=== PATIENT | female | born 1975 | race Caucasian/White ===

== ENCOUNTER 2017-09-16 06:07 | Inpatient (IN) ==
[2017-09-16] MEDS ORDERED: SODIUM CHLORIDE 0.9% 500 ML IV STA (06:58)
[2017-09-16] MEDS ORDERED: ONDANSETRON 4 MG/2 ML VIAL IV STA (06:58)
[2017-09-16] MEDS ORDERED: ONDANSETRON 4 MG/2 ML VIAL ONE (07:29)
[2017-09-16 07:34] LABS: Basophils # 0.1 10*3/uL (0.0-0.2); Basophils % 0.6 % (0.0-0.8); Eosinophils # 0.2 10*3/uL (0.0-0.87); Immature Granulocytes % 0.7 %; Immature Granulocytes Absolute 0.11 #; Lymphocytes # 2.6 10*3/uL (1.4-4.0); Lymphocytes % 16.3 % (21.3-54.2); Mean Corpuscular HGB Conc 37.4 GM/DL (32-36); Mean Corpuscular Hemoglobin 31 PG (27-34); Mean Platelet Volume 9.2 FL (9.6-12.0); Monocytes # 1.2 10*3/uL (0.11-0.8); Monocytes % 7.4 % (1.7-12.7); Neutrophils # 11.6 10*3/uL (1.4-7.4); Platelet Count 387 T/CUMM (130-400); Red Blood Count 5.61 MC/CUMM (3.8-5.5); Red Cell Distribution Width 13.3 % (9.3-17.3); White Blood Count 15.7 T/CUMM (4-12)
[2017-09-16 07:51] LABS: Amorphous Crystals,Urine Occasional /HPF (Few); Apearance,Urine CLOUDY (Clear); Bacteria,Urine Occasional /HPF (Few); Bilirubin,Urine Negative (Negative); Blood, Urine Moderate mg/dL (Negative); Glucose,Urine (UA) Negative (Negative); Hyaline Casts,Urine 7 /LPF (0-3); Ketones,Urine Negative (Negative); Mucus,Urine Occasional /LPF (Occasional); Nitrite,Urine Negative (Negative); Protein,Urine 30 MG/DL; RBC,Urine 9 /HPF (0-4); Squamous Epithelial Cell,Urine Few /HPF (0-10); Urine Specific Gravity 1.014 (1.001-1.035); Urine Urobilinogen < 2.0 EU/DL (0.2-1.0); WBC,Urine 3 /HPF (0-6)
[2017-09-16 07:52] LABS: Urine Color Yellow (Yellow)
[2017-09-16 07:57] LABS: Hemoglobin 17.2 GM/DL (12.0-16.0)
[2017-09-16 08:03] LABS: Albumin 3.8 G/DL (3.4-5.0); Bilirubin,Total 1.2 MG/DL (0.2-1.0); Calcium 9.4 MG/DL (8.5-10.1); Osmolality,Calculated 255.2 MOS/KG (273-304); Total Protein 8.3 G/DL (6.4-8.3)
[2017-09-16 08:11] LABS: Potassium 2.3 MMOL/L (3.5-5.1)
[2017-09-16] MEDS ORDERED: POTASSIUM CHLORIDE RIDER 10 MEQ in PREMIX 1 EACH IV ONE (08:14)
[2017-09-16] MEDS ORDERED: POTASSIUM CHLORIDE 20 MEQ TABLET PO STA ×2 (08:14→13:00)
[2017-09-16] MEDS ORDERED: POTASSIUM CHLORIDE 20 MEQ TABLET PO ONE ×4 (08:16→23:59)
[2017-09-16] MEDS ORDERED: POTASSIUM CHLORIDE RIDER 100 ML IV ONE (08:16)
[2017-09-16] MEDS ORDERED: NICOTINE 21 MG/24 HR PATCH TRANSDERM PRN (15:08)
[2017-09-16] MEDS ORDERED: SODIUM CHLORIDE 0.9% 1,000 ML IV SCH (15:30)
[2017-09-16] MEDS ORDERED: traMADol 50 MG TABLET PO PRN (16:26)
[2017-09-16] MEDS: SODIUM CHLOR 0.9% KCL 40 MEQ 40 MEQ/1,000 ML BAG IV SCH (16:52)
[2017-09-16] MEDS: POTASSIUM CHLORIDE 20 MEQ TABLET PO SCH (16:52)
[2017-09-16 18:13] LABS: Calcium 8.9 MG/DL (8.5-10.1); Osmolality,Calculated 260.7 MOS/KG (273-304)
[2017-09-16] MEDS: MORPHINE 2 MG/1 ML SYRINGE IV PRN (20:09)
[2017-09-16] MEDS: ONDANSETRON 4 MG/2 ML VIAL IV PRN (20:10)
[2017-09-16] MEDS: risperiDONE 1 MG TABLET PO SCH (20:49)
[2017-09-17] MEDS: SODIUM CHLOR 0.9% KCL 40 MEQ 40 MEQ/1,000 ML BAG IV SCH ×3 (02:48→22:58)
[2017-09-17 05:40] LABS: Basophils # 0.1 10*3/uL (0.0-0.2); Basophils % 0.5 % (0.0-0.8); Eosinophils # 0.2 10*3/uL (0.0-0.87); Eosinophils % 2.2 % (0.00-10.9); Hematocrit 41.4 VOL% (35.7-47.0); Hemoglobin 14.8 GM/DL (12.0-16.0); Immature Granulocytes % 0.6 %; Immature Granulocytes Absolute 0.06 #; Lymphocytes # 3.3 10*3/uL (1.4-4.0); Lymphocytes % 30.5 % (21.3-54.2); Mean Corpuscular HGB Conc 35.7 GM/DL (32-36); Mean Corpuscular Hemoglobin 30 PG (27-34); Mean Corpuscular Volume 84.7 FL (87-102); Mean Platelet Volume 9.5 FL (9.6-12.0); Monocytes # 0.7 10*3/uL (0.11-0.8); Monocytes % 6.8 % (1.7-12.7); Neutrophils # 6.4 10*3/uL (1.4-7.4); Neutrophils % 59.4 % (38.7-73.9); Platelet Count 327 T/CUMM (130-400); Red Blood Count 4.89 MC/CUMM (3.8-5.5); Red Cell Distribution Width 13.6 % (9.3-17.3); White Blood Count 10.7 T/CUMM (4-12)
[2017-09-17 06:09] LABS: Bilirubin,Total 1.1 MG/DL (0.2-1.0); Calcium 8.8 MG/DL (8.5-10.1); Osmolality,Calculated 267.2 MOS/KG (273-304); Total Protein 6.5 G/DL (6.4-8.3)
[2017-09-17 06:18] LABS: Potassium 2.5 MMOL/L (3.5-5.1)
[2017-09-17] MEDS ORDERED: risperiDONE 1 MG TABLET PO SCH (09:00)
[2017-09-17] MEDS: POTASSIUM CHLORIDE 20 MEQ TABLET PO SCH (09:51)
[2017-09-17] MEDS: PANTOPRAZOLE 40 MG VIAL IV SCH ×2 (09:52→21:01)
[2017-09-17] MEDS: ONDANSETRON 4 MG/2 ML VIAL IV PRN ×3 (12:12→22:20)
[2017-09-17] MEDS: POTASSIUM CHLORIDE 20 MEQ/15 ML UDCUP PO SCH ×2 (16:15→21:00)
[2017-09-17] MEDS: risperiDONE 1 MG TABLET PO SCH (21:01)
[2017-09-18 05:42] LABS: Calcium 8.3 MG/DL (8.5-10.1); Osmolality,Calculated 272.7 MOS/KG (273-304); Potassium 3.2 MMOL/L (3.5-5.1)
[2017-09-18 05:50] LABS: Albumin 2.9 G/DL (3.4-5.0); Bilirubin,Direct 0.16 MG/DL (0.0-0.20); Bilirubin,Indirect 0.4 MG/DL (0.0-1.0); Bilirubin,Total 0.6 MG/DL (0.2-1.0); Total Protein 6.3 G/DL (6.4-8.3)
[2017-09-18] MEDS: PANTOPRAZOLE 40 MG VIAL IV SCH ×2 (09:50→20:30)
[2017-09-18] MEDS: POTASSIUM CHLORIDE 20 MEQ/15 ML UDCUP PO SCH ×3 (09:50→20:28)
[2017-09-18] MEDS ORDERED: PROPOFOL 200 MG/20 ML VIAL IV ONE (11:39)
[2017-09-18] MEDS ORDERED: GLYCOPYRROLATE 0.4 MG/2 ML VIAL ONE (11:39)
[2017-09-18] MEDS ORDERED: LIDOCAINE 100 MG/5 ML SYRINGE ONE (11:39)
[2017-09-18] MEDS: METOCLOPRAMIDE 10 MG/10 ML UDCUP PO SCH ×3 (11:43→20:26)
[2017-09-18] MEDS: SODIUM CHLOR 0.9% KCL 40 MEQ 40 MEQ/1,000 ML BAG IV SCH ×2 (11:44→20:25)
[2017-09-18] MEDS: ONDANSETRON 4 MG/2 ML VIAL IV PRN ×2 (13:59→20:36)
[2017-09-19] MEDS: SODIUM CHLOR 0.9% KCL 40 MEQ 40 MEQ/1,000 ML BAG IV SCH ×2 (03:56→14:16)
[2017-09-19] MEDS ORDERED: cefOXitin 2,000 MG in SYRINGE 1 EACH IV ONE (06:00)
[2017-09-19] MEDS ORDERED: TISSUE ADHESIVE 1 EACH APPLICATOR TOP ONE (06:16)
[2017-09-19 06:55] LABS: Calcium 8.1 MG/DL (8.5-10.1); Osmolality,Calculated 276.4 MOS/KG (273-304); Potassium 4.1 MMOL/L (3.5-5.1)
[2017-09-19] MEDS ORDERED: LIDOCAINE 1%/EPI INJ 20 ML VIAL ONE (07:54)
[2017-09-19] MEDS ORDERED: BUPIVACAINE 0.25% 50 ML VIAL ONE (07:54)
[2017-09-19] MEDS ORDERED: ACETAMINOPHEN 1,000 MG/100 ML VIAL IV ONE (07:57)
[2017-09-19] MEDS ORDERED: METOPROLOL TARTRATE 5 MG/5 ML VIAL IV ONE (08:39)
[2017-09-19] MEDS ORDERED: ONDANSETRON 4 MG/2 ML VIAL ONE (08:39)
[2017-09-19] MEDS ORDERED: MIDAZOLAM 2 MG/2 ML VIAL ONE (08:39)
[2017-09-19] MEDS ORDERED: fentaNYL 100 MCG/2 ML VIAL ONE (08:39)
[2017-09-19] MEDS ORDERED: PROPOFOL 200 MG/20 ML VIAL IV ONE ×2 (08:39→08:40)
[2017-09-19] MEDS ORDERED: LACTATED RINGERS 1,000 ML IV ONE (08:40)
[2017-09-19] MEDS ORDERED: DESFLURANE 1 UNIT/15 MINUTE INH ONE (08:40)
[2017-09-19] MEDS ORDERED: NEOSTIGMINE 10 MG/10 ML VIAL ONE (08:40)
[2017-09-19] MEDS ORDERED: GLYCOPYRROLATE 0.4 MG/2 ML VIAL ONE (08:40)
[2017-09-19] MEDS ORDERED: ROCURONIUM 100 MG/10 ML VIAL IV ONE (08:40)
[2017-09-19] MEDS ORDERED: ONDANSETRON 4 MG/2 ML VIAL IV PRN (08:47)
[2017-09-19] MEDS: HYDROmorphone 2 MG/1 ML VIAL IV PRN ×2 (08:47→08:55)
[2017-09-19] MEDS: METOCLOPRAMIDE 10 MG/10 ML UDCUP PO SCH ×3 (09:19→12:08)
[2017-09-19] MEDS: PANTOPRAZOLE 40 MG VIAL IV SCH (09:41)
[2017-09-19] MEDS: POTASSIUM CHLORIDE 20 MEQ/15 ML UDCUP PO SCH (09:46)
[2017-09-19] MEDS: MORPHINE 2 MG/1 ML SYRINGE IV PRN (09:55)
[2017-09-19 11:55] VITALS: BP 138/79
== END 2017-09-19 14:05 | disposition home or self-care (01) | DRG 418 ==
LOC: N.ED 06:07 → N.EDINP 13:42 → SUATTDRO 13:42 → N.EDINP 14:18 → N.2E 14:31
PROVIDERS: ADMIT Internal Medicine; ATTEND Family Medicine
PROC: LAPCHOL (2017-09-19 07:14)

== ENCOUNTER 2019-09-30 15:08 | Inpatient (IN) ==
[2019-09-30] MEDS ORDERED: HYDROmorphone 2 MG/1 ML VIAL IV STA (15:56)
[2019-09-30] MEDS ORDERED: ONDANSETRON 4 MG/2 ML VIAL IV ONE (15:56)
[2019-09-30] MEDS ORDERED: HYDROmorphone 2 MG/1 ML VIAL ONE (15:57)
[2019-09-30] MEDS ORDERED: ONDANSETRON 4 MG/2 ML VIAL ONE (15:57)
[2019-09-30] MEDS ORDERED: MAGNESIUM HYDROXIDE SUSP 30 ML UDCUP PO PRN ×2 (16:44→17:56)
[2019-09-30] MEDS ORDERED: ceFAZolin 2,000 MG in PREMIX 1 EACH IV ONE (16:44)
[2019-09-30] MEDS ORDERED: HYDROmorphone 2 MG/1 ML VIAL IV PRN (16:49)
[2019-09-30] MEDS ORDERED: SODIUM CHLORIDE 0.9% 1,000 ML IV STA (17:14)
[2019-09-30] MEDS ORDERED: PROMETHAZINE 25 MG/1 ML VIAL IM PRN (17:56)
[2019-09-30] MEDS ORDERED: ALUMINUM/MAGNES/SIMETH MAX STR 30 ML UDCUP PO PRN (17:56)
[2019-09-30] MEDS ORDERED: TEMAZEPAM 15 MG CAPSULE PO PRN (17:56)
[2019-09-30] MEDS ORDERED: ONDANSETRON 4 MG/2 ML VIAL IV PRN (17:56)
[2019-09-30 18:08] LABS: Basophils # 0.1 10*3/uL (0.0-0.2); Basophils % 0.8 % (0.0-0.8); Eosinophils # 0.2 10*3/uL (0.0-0.87); Eosinophils % 1.5 % (0.00-10.9); Hematocrit 42.4 VOL% (35.7-47.0); Hemoglobin 13.9 GM/DL (12.0-16.0); Immature Granulocytes % 0.8 %; Immature Granulocytes Absolute 0.11 #; Lymphocytes # 2.4 10*3/uL (1.4-4.0); Lymphocytes % 17.8 % (21.3-54.2); Mean Corpuscular HGB Conc 32.8 GM/DL (32-36); Mean Platelet Volume 9.4 FL (9.6-12.0); Monocytes % 6.8 % (1.7-12.7); Neutrophils % 72.3 % (38.7-73.9); Platelet Count 340 T/CUMM (130-400); Red Blood Count 4.66 MC/CUMM (3.8-5.5); Red Cell Distribution Width 13.5 % (9.3-17.3); White Blood Count 13.2 T/CUMM (4-12)
[2019-09-30] MEDS: HYDROmorphone 2 MG/1 ML VIAL IV PRN (18:10)
[2019-09-30] MEDS ORDERED: PROBENECID 500 MG TABLET PO PRN (18:20)
[2019-09-30 18:23] LABS: PT Patient Result 10.7 SECS (9.6-12.2); Partial Thromboplastin Time 31.3 SECS (20.8-36.0)
[2019-09-30 18:31] LABS: Albumin 3.1 G/DL (3.4-5.0); Bilirubin,Total 0.5 MG/DL (0.2-1.0); Calcium 8.6 MG/DL (8.5-10.1); Total Protein 7.2 G/DL (6.4-8.3)
[2019-09-30] MEDS: ALPRAZolam 0.5 MG TABLET PO SCH (21:10)
[2019-09-30] MEDS: POTASSIUM CHLORIDE 10 MEQ TABLET PO SCH (21:10)
[2019-09-30] MEDS: METOCLOPRAMIDE 10 MG/10 ML UDCUP PO SCH (21:11)
[2019-09-30] MEDS: QUEtiapine 100 MG TABLET PO SCH (21:11)
[2019-09-30] MEDS: PANTOPRAZOLE 40 MG TABLET PO SCH (21:11)
[2019-09-30] MEDS: SODIUM CHLORIDE 0.9% 1,000 ML IV SCH (21:17)
[2019-09-30] MEDS: NON-FORMULARY MEDICATION (Ursodiol 1,000 MG) PO SCH (21:21)
[2019-10-01] MEDS: METOCLOPRAMIDE 10 MG/10 ML UDCUP PO SCH ×4 (08:08→20:32)
[2019-10-01] MEDS: NON-FORMULARY MEDICATION (Ursodiol 500 MG) PO SCH (08:18)
[2019-10-01] MEDS: PANTOPRAZOLE 40 MG TABLET PO SCH ×2 (08:18→20:32)
[2019-10-01] MEDS: allopurinoL 300 MG TABLET PO SCH (08:18)
[2019-10-01] MEDS: POTASSIUM CHLORIDE 10 MEQ TABLET PO SCH ×2 (08:18→20:31)
[2019-10-01] MEDS: FUROSEMIDE 20 MG TABLET PO SCH (08:18)
[2019-10-01] MEDS: HYDROmorphone 2 MG/1 ML VIAL IV PRN (08:56)
[2019-10-01] MEDS: ALPRAZolam 0.5 MG TABLET PO SCH ×2 (08:56→20:32)
[2019-10-01] MEDS ORDERED: ceFAZolin 2,000 MG in PREMIX 1 EACH IV ONE (09:00)
[2019-10-01] MEDS: SODIUM CHLORIDE 0.9% 1,000 ML IV SCH ×2 (09:06→15:13)
[2019-10-01] MEDS ORDERED: SUGAMMADEX 200 MG/2 ML VIAL IV ONE (11:20)
[2019-10-01] MEDS ORDERED: diphenhydrAMINE CAP 25 MG CAPSULE PO PRN (12:02)
[2019-10-01] MEDS ORDERED: MAGNESIUM HYDROXIDE SUSP 30 ML UDCUP PO PRN (12:02)
[2019-10-01] MEDS ORDERED: LACTULOSE 20 GM/30 ML UDCUP PO PRN (12:02)
[2019-10-01] MEDS ORDERED: BISACODYL 10 MG SUPP RECTAL PRN (12:02)
[2019-10-01] MEDS ORDERED: LIDOCAINE 2% 5 ML VIAL ONE (12:17)
[2019-10-01] MEDS ORDERED: SEVOFLURANE 1 UNIT/15 MINUTE INH ONE (12:17)
[2019-10-01] MEDS ORDERED: propofoL 200 MG/20 ML VIAL IV ONE (12:17)
[2019-10-01] MEDS ORDERED: fentaNYL 100 MCG/2 ML VIAL ONE (12:18)
[2019-10-01] MEDS ORDERED: ROCURONIUM 100 MG/10 ML VIAL IV ONE (12:18)
[2019-10-01] MEDS ORDERED: PHENYLEPHRINE 1 MG/10 ML SYRINGE IV ONE (12:18)
[2019-10-01] MEDS ORDERED: DEXAMETHASONE 4 MG/1 ML VIAL ONE (12:18)
[2019-10-01] MEDS ORDERED: KETOROLAC 30 MG/1 ML VIAL ONE (12:18)
[2019-10-01] MEDS ORDERED: SUCCINYLCHOLINE 200 MG/10 ML VIAL ONE (12:18)
[2019-10-01] MEDS ORDERED: MIDAZOLAM 2 MG/2 ML VIAL ONE (12:18)
[2019-10-01] MEDS ORDERED: ONDANSETRON 4 MG/2 ML VIAL ONE (12:18)
[2019-10-01] MEDS ORDERED: LACTATED RINGERS 1,000 ML IV ONE (12:18)
[2019-10-01] MEDS ORDERED: ONDANSETRON 4 MG/2 ML VIAL IV PRN (12:27)
[2019-10-01] MEDS ORDERED: HYDROmorphone 2 MG/1 ML VIAL IV PRN (12:27)
[2019-10-01] MEDS: ceFAZolin 2,000 MG in PREMIX 1 EACH IV SCH (15:13)
[2019-10-01] MEDS ORDERED: INFLUENZA VIRUS VACCINE 0.5 ML SYRINGE IM ONE (16:23)
[2019-10-01] MEDS: oxyCODONE IR 5 MG TABLET PO PRN ×2 (17:58→22:30)
[2019-10-01] MEDS: KETOROLAC 15 MG/1 ML VIAL IV SCH (17:59)
[2019-10-01] MEDS: NON-FORMULARY MEDICATION (Ursodiol 1,000 MG) PO SCH (20:34)
[2019-10-01] MEDS: QUEtiapine 100 MG TABLET PO SCH (22:30)
[2019-10-02] MEDS: KETOROLAC 15 MG/1 ML VIAL IV SCH ×2 (00:45→05:09)
[2019-10-02] MEDS: ceFAZolin 2,000 MG in PREMIX 1 EACH IV SCH ×2 (00:46→07:49)
[2019-10-02] MEDS: oxyCODONE IR 5 MG TABLET PO PRN ×4 (04:09→17:08)
[2019-10-02 06:01] LABS: Basophils % 0.2 % (0.0-0.8); Eosinophils % 0.1 % (0.00-10.9); Hemoglobin 11.2 GM/DL (12.0-16.0); Immature Granulocytes % 0.6 %; Immature Granulocytes Absolute 0.09 #; Lymphocytes # 2.3 10*3/uL (1.4-4.0); Lymphocytes % 13.9 % (21.3-54.2); Mean Corpuscular Volume 91.4 FL (87-102); Monocytes % 5.5 % (1.7-12.7); Neutrophils % 79.7 % (38.7-73.9); Platelet Count 229 T/CUMM (130-400); Red Blood Count 3.83 MC/CUMM (3.8-5.5); Red Cell Distribution Width 13.4 % (9.3-17.3); White Blood Count 16.4 T/CUMM (4-12)
[2019-10-02] MEDS: METOCLOPRAMIDE 10 MG/10 ML UDCUP PO SCH ×4 (07:48→21:41)
[2019-10-02] MEDS: PANTOPRAZOLE 40 MG TABLET PO SCH ×2 (09:34→21:41)
[2019-10-02] MEDS: POTASSIUM CHLORIDE 10 MEQ TABLET PO SCH ×2 (09:34→21:40)
[2019-10-02] MEDS: allopurinoL 300 MG TABLET PO SCH (09:34)
[2019-10-02] MEDS: ALPRAZolam 0.5 MG TABLET PO SCH ×2 (09:34→21:41)
[2019-10-02] MEDS: FUROSEMIDE 20 MG TABLET PO SCH (09:35)
[2019-10-02] MEDS: NON-FORMULARY MEDICATION (Ursodiol 500 MG) PO SCH (09:35)
[2019-10-02] MEDS ORDERED: NICORETTE GUM BUCCAL PRN (10:49)
[2019-10-02] MEDS: HYDROmorphone 2 MG/1 ML VIAL IV PRN ×2 (13:24→19:11)
[2019-10-02] MEDS: QUEtiapine 100 MG TABLET PO SCH (21:40)
[2019-10-02] MEDS: NON-FORMULARY MEDICATION (Ursodiol 1,000 MG) PO SCH (21:41)
[2019-10-03] MEDS: oxyCODONE IR 5 MG TABLET PO PRN ×3 (04:25→09:33)
[2019-10-03 06:25] LABS: Basophils # 0.1 10*3/uL (0.0-0.2); Basophils % 0.4 % (0.0-0.8); Eosinophils # 0.1 10*3/uL (0.0-0.87); Eosinophils % 0.8 % (0.00-10.9); Immature Granulocytes % 0.7 %; Immature Granulocytes Absolute 0.12 #; Lymphocytes % 17.6 % (21.3-54.2); Mean Corpuscular HGB Conc 32.4 GM/DL (32-36); Mean Corpuscular Volume 89.5 FL (87-102); Mean Platelet Volume 9.4 FL (9.6-12.0); Monocytes % 6.3 % (1.7-12.7); Neutrophils % 74.2 % (38.7-73.9); Platelet Count 263 T/CUMM (130-400); Red Cell Distribution Width 13.7 % (9.3-17.3); White Blood Count 17.2 T/CUMM (4-12)
[2019-10-03 06:46] LABS: Calcium 8.6 MG/DL (8.5-10.1); Osmolality,Calculated 267.1 MOS/KG (273-304)
[2019-10-03] MEDS: METOCLOPRAMIDE 10 MG/10 ML UDCUP PO SCH ×2 (08:35→12:45)
[2019-10-03] MEDS: ALPRAZolam 0.5 MG TABLET PO SCH (08:36)
[2019-10-03] MEDS: allopurinoL 300 MG TABLET PO SCH (08:36)
[2019-10-03] MEDS: FUROSEMIDE 20 MG TABLET PO SCH (08:37)
[2019-10-03] MEDS: PANTOPRAZOLE 40 MG TABLET PO SCH (08:37)
[2019-10-03] MEDS: POTASSIUM CHLORIDE 10 MEQ TABLET PO SCH (08:37)
[2019-10-03] MEDS: NON-FORMULARY MEDICATION (Ursodiol 500 MG) PO SCH (08:41)
[2019-10-03 08:59] VITALS: BP 128/64
== END 2019-10-03 12:40 | disposition home or self-care (01) | DRG 493 ==
LOC: N.ED 15:08 → N.EDINP 16:42 → N.3E 17:26
PROVIDERS: ADMIT Orthopaedic Surgery; ATTEND Orthopaedic Surgery